=== PATIENT | female | born 1975 | race Caucasian/White ===

== ENCOUNTER 2017-08-11 22:44 | Emergency (ER) | payer SELFPAY ==
[2017-08-11] MEDS ORDERED: ONDANSETRON HCL INJ/PF 4 MG/2 ML SDV IV ONE (22:58)
[2017-08-11] MEDS ORDERED: LIDOCAINE 1%/EPINEPHRINE INJ 20 ML VIAL INJ ONE (22:59)
[2017-08-11] MEDS ORDERED: NORMAL SALINE 1000 ML 1,000 ML IV ONE (22:59)
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
[2017-08-11 23:19] LABS: ANION GAP 19 (5-19); BLOOD UREA NITROGEN 19 mg/dL (7-20); CALCIUM 9.6 mg/dL (8.4-10.2); CARBON DIOXIDE 20 mmol/L (22-30); CHLORIDE 110 mmol/L (98-107); GLUCOSE 89 mg/dL (75-110); POTASSIUM 4.4 mmol/L (3.6-5.0); SODIUM 148.9 mmol/L (137-145)
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
[2017-08-12] MEDS ORDERED: KETOROLAC TROMETHAMINE INJ/PF 30 MG/1 ML SDV IV ONE (00:18)
[2017-08-12] MEDS ORDERED: FENTANYL CITRATE INJ/PF 100 MCG/2 ML AMPUL IV ONE (00:18)
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
[2017-08-12 02:03] VITALS: BP 123/75
== END 2017-08-12 02:02 | disposition home or self-care (01) ==
LOC: ER 22:44
DX: S22.41XA Multiple fractures of ribs, right side, initial encounter for closed fracture (principal); S01.112A Laceration without foreign body of left eyelid and periocular area, initial encounter; S01.81XA Laceration without foreign body of other part of head, initial encounter; X99.0XXA Assault by sharp glass, initial encounter; R51 Headache; R93.0 Abnormal findings on diagnostic imaging of skull and head, not elsewhere classified; M47.9 Spondylosis, unspecified; F10.129 Alcohol abuse with intoxication, unspecified
CPT/HCPCS: 99284; 96361; 96374; 96375; 36415; 81025; 80048; 71101; 70450; 72125; 12013; J3010; J3490; J1885; J2405; J7030

== ENCOUNTER 2017-08-28 09:50 | Emergency (ER) | payer SELFPAY ==
[2017-08-28 10:02] VITALS: BP 131/82
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
== END 2017-08-28 10:26 | disposition home or self-care (01) ==
LOC: EDBD 09:50 → ER 09:50
DX: S01.112D Laceration without foreign body of left eyelid and periocular area, subsequent encounter (principal); W25.XXXD Contact with sharp glass, subsequent encounter; F17.200 Nicotine dependence, unspecified, uncomplicated